=== PATIENT | female | born 1940 | race Caucasian/White ===

== ENCOUNTER 2017-12-09 08:52 | Day surgery (SDC) | payer MEDICARE, BC ==
[~2017-12-09] VITALS: Ht 172.7 cm; Wt 80.0 kg
[~2017-12-09 08:52] MED LIST: ASPI-1264 PO; ATOR80TA PO; CALC-723 PO; DICL1TAB61 PO; DILT240C PO; ERGO2000 PO; EZET10TA13 PO; IRBE300T10 PO; MULT-785 PO; OMEG1CAP13 PO; SYN0.112T PO
[2017-12-09 09:03] VITALS: BP 149/74
[2017-12-09] MEDS ORDERED: fentaNYL/PF 50MCG/1 ML 2ML syringe ONE (09:24)
[2017-12-09] MEDS ORDERED: MIDAZolam 1mg/ml 10ml vial ONE (09:24)
[2017-12-09 11:00] VITALS: BP 139/66
[2017-12-09 11:10] VITALS: BP 131/69
[2017-12-09 11:20] VITALS: BP 129/66
== END 2017-12-09 11:45 | disposition home or self-care (01) ==
LOC: GI LAB 08:52
PROVIDERS: ATTEND Specialist
DX: K52.89 Other specified noninfective gastroenteritis and colitis (principal); I10 Essential (primary) hypertension; Z98.890 Other specified postprocedural states; Z79.82 Long term (current) use of aspirin; Z79.899 Other long term (current) drug therapy
CPT/HCPCS: 45380; 99153; G0500; J2250; J3010; J7030; 88305; A4620